=== PATIENT | female | born 1985 | race Caucasian/White ===

== ENCOUNTER 2018-11-17 02:06 | Emergency (ER) | payer SELFPAY ==
[~2018-11-17] VITALS: Ht 157.5 cm; Wt 83.9 kg
[2018-11-17 02:14] VITALS: BP 142/83
--- NOTE | 2018-11-17 02:14 | NUR ---
PT AMBULATED TO BED WITH FAMILY/FRIEND
[2018-11-17 02:15] VITALS: BP 142/83
[2018-11-17] MEDS ORDERED: methylPREDNISolone SS 125 MG/2 ML VIAL IM ONE (02:15)
[2018-11-17] MEDS ORDERED: ALBUTEROL SULFATE/IPRATROPIU 3 ML SOL IH ONE ×2 (02:15→02:35)
--- NOTE | 2018-11-17 02:15 | NUR ---
33 Y/O F PRESENTED TO ED WITH C/O DIFFICULTY BREATHING X1 HOUR. PER PT "TYPICALLY TAKE ALBUTEROL BUT I RAN OUT."AUDIBLE WHEEZING HEARD. WHEEZING HEARD TO THROUGHOUT LUNG MANRIQUE ON INSPIRATION AND EXPIRATION. O2 SATURATION AT 98% ON ROOM AIR. PT HAS DRY NON-PRODUCTIVE COUGH. FAMILY AT BEDSIDE. ERMD NOTIFIED OF PT STATUS. WILL CONTINUE TO MONITOR.
--- NOTE | 2018-11-17 02:27 | NUR ---
RT AT BEDSIDE.
--- NOTE | 2018-11-17 02:49 | NUR ---
PT BILATERAL LUNGS CLEAR. PER PT "I FEEL ALOT BETTER." O2 SATURATION AT 100% ON ROOM AIR.
--- NOTE | 2018-11-17 03:03 | NUR ---
Patient discharged with v/s stable. Written and verbal after care instructions given and explained. Patient alert, oriented and verbalized understanding of instructions. Ambulatory with steady gait. All questions addressed prior to discharge. ID band removed. Patient advised to follow up with PMD. Rx of Albuterol and prednisone given. Patient educated on indication of medication including possible reaction and side effects. Opportunity to ask questions provided and answered.
== END 2018-11-17 03:03 | disposition home or self-care (01) ==
LOC: MED 02:06
DX: J45.901 Unspecified asthma with (acute) exacerbation (principal); R03.0 Elevated blood-pressure reading, without diagnosis of hypertension; Z88.1 Allergy status to other antibiotic agents
CPT/HCPCS: 94640; 94760; 96372; 99284; J2930; J7620